=== PATIENT | female | born 1960 | race African-American/Black ===

== ENCOUNTER 2023-03-22 13:08 | Emergency (ER) | payer MEDICAID, OTHER ==
[~2023-03-22] VITALS: Ht 167.6 cm; Wt 105.0 kg
[2023-03-22 13:20] VITALS: O2SAT 100
[2023-03-22] MEDS ORDERED: SODIUM CHLORIDE 0.9% 1,000 ML IV ONE (13:45)
[2023-03-22 14:28] LABS: BASOPHILS % 0.5 % (0.0-2.0); EOSINOPHILS % 0.9 % (0.0-5.0); HEMATOCRIT. 22.6 % (36.0-48.0); HEMOGLOBIN. 7.4 g/dL (12.0-16.0); LYMPHOCYTES % 10.8 % (20.0-50.0); MEAN CORPUSCULAR HEMOGLOBIN 27.5 pg (28.0-32.0); MEAN CORPUSCULAR HGB CONC 32.7 g/dL (31.0-37.0); MEAN CORPUSCULAR VOLUME 84.1 fL (81.0-99.0); MEAN PLATELET VOLUME 7.8 fl (7.4-10.4); MONOCYTES % 6.5 % (2.0-8.0); NEUTROPHILS % 81.3 % (40.0-76.0); PLATELET 557 x1000/uL (130-400); RED BLOOD CELL COUNT 2.68 mill/uL (4.2-5.4); RED CELL DISTRIBUTION WIDTH 15.7 % (11.6-14.6); WHITE BLOOD COUNT 13.5 x1000/uL (4.5-11.0)
[2023-03-22 14:38] LABS: D-DIMER 1.14 mg/L FEU (<0.50); INR 1.3
[2023-03-22 15:02] LABS: CHLORIDE 107 mEq/L (98-107); INDEX HEMOLYSI 1 (1-3); INDEX ICTERIC 1 (1-4); INDEX LIPEMIC 1 (1-3); POTASSIUM 3.8 mEq/L (3.5-5.1); SODIUM 138 mEq/L (136-145)
[2023-03-22 15:13] LABS: ALBUMIN 2.2 g/dL (3.4-5.0); CALCIUM 9.4 mg/dL (8.5-10.1); CARBON DIOXIDE 18 mEq/L (21-32); CREATININE 0.9 mg/dL (0.6-1.3); GLUCOSE 138 mg/dL (70-105); PROTEIN TOTAL 9.1 g/dL (6.0-8.3); UREA NITROGEN BLOOD 23 mg/dL (7-21)
[2023-03-22 15:14] LABS: ALANINE AMINOTRANSFERASE 20 IU/L (13-61); ASPARTATE AMINOTRANSFERASE 22 IU/L (15-37); BILIRUBIN TOTAL 0.5 mg/dL (0.1-1.0); NT PRO B-TYPE NATRIURETIC PEP 211 pg/mL (5-125); TROPONIN I HIGH SENSITIVITY 4 ng/L (<54)
[2023-03-22 21:52] LABS: T4 FREE 1.19 ng/dL (0.76-1.46)
[2023-03-22 22:00] LABS: TROPONIN I HIGH SENSITIVITY < 4 ng/L (<54)
[2023-03-22 23:52] LABS: TROPONIN I HIGH SENSITIVITY 4 ng/L (<54)
[2023-03-23 07:30] VITALS: BP 94/57; PULSE 88; RESP 18; TEMP 97.8
== END 2023-03-23 08:16 | disposition short-term general hospital (02) ==
LOC: ER 13:20 → EDBEDREQTM 03-23 05:54 → EDBEDREQ 03-23 05:54 → EDBEDREQSVC 03-23 07:17 → ER 03-23 08:16
DX: R06.00 Dyspnea, unspecified (principal); E11.9 Type 2 diabetes mellitus without complications; E78.00 Pure hypercholesterolemia, unspecified; I10 Essential (primary) hypertension; Z85.59 Personal history of malignant neoplasm of other urinary tract organ; Z90.49 Acquired absence of other specified parts of digestive tract; Z98.890 Other specified postprocedural states; Z90.710 Acquired absence of both cervix and uterus
CPT/HCPCS: 99285; 96360; 71275; 71045; 80053; 83880; 84439; 84443; 85025; 85379; 85610; 84484; 93005; 36415; Q9967; J7030

== ENCOUNTER 2023-04-10 09:22 | Emergency (ER) | payer OTHER ==
[~2023-04-10] VITALS: Ht 167.6 cm; Wt 107.0 kg
[2023-04-10 09:38] VITALS: TEMP 97.8; O2SAT 100
[2023-04-10 10:32] LABS: HEMATOCRIT. 25.6 % (36.0-48.0); HEMOGLOBIN. 8.2 g/dL (12.0-16.0); MEAN CORPUSCULAR HGB CONC 31.9 g/dL (31.0-37.0); MEAN CORPUSCULAR VOLUME 84.7 fL (81.0-99.0); MEAN PLATELET VOLUME 7.5 fl (7.4-10.4); PLATELET 514 x1000/uL (130-400); RED BLOOD CELL COUNT 3.02 mill/uL (4.2-5.4); RED CELL DISTRIBUTION WIDTH 17.2 % (11.6-14.6); WHITE BLOOD COUNT 11.6 x1000/uL (4.5-11.0)
[2023-04-10 10:51] LABS: DIFFERENTIAL COMMENT 1
[2023-04-10 11:45] LABS: ALANINE AMINOTRANSFERASE < 7 IU/L (10-49); ALBUMIN 3.4 g/dL (3.2-4.8); ASPARTATE AMINOTRANSFERASE 11 IU/L (<34); BILIRUBIN TOTAL 0.5 mg/dL (0.1-1.0); CALCIUM 8.6 mg/dL (8.7-10.4); CARBON DIOXIDE 22 mEq/L (21-32); CHLORIDE 107 mEq/L (98-107); CREATININE 0.7 mg/dL (0.6-1.0); GLUCOSE 170 mg/dL (70-105); POTASSIUM 3.8 mEq/L (3.5-5.1); SODIUM 139 mEq/L (136-145); UREA NITROGEN BLOOD 10 mg/dL (9-23)
[2023-04-10 11:54] LABS: ANISOCYTOSIS 1+; PLATELET ESTIMATE INCREASED
[2023-04-10 23:52] VITALS: BP 130/68; PULSE 70; RESP 16
== END 2023-04-11 00:22 | disposition home or self-care (01) ==
LOC: ER 09:22
DX: D64.9 Anemia, unspecified (principal); D25.9 Leiomyoma of uterus, unspecified; E11.9 Type 2 diabetes mellitus without complications; E78.00 Pure hypercholesterolemia, unspecified; I10 Essential (primary) hypertension; Z90.710 Acquired absence of both cervix and uterus; Z98.890 Other specified postprocedural states
CPT/HCPCS: 80053; 85025; 86850; 86900; 86901; 86920; 36415; 76830; 76856; 99285; Z7610 ×2; 36430; P9016